=== PATIENT | female | born 1965 | race Caucasian/White ===

== ENCOUNTER 2018-09-29 11:05 | Day surgery (SDC) | payer BC ==
[~2018-09-29] VITALS: Ht 165.1 cm; Wt 92.2 kg
[~2018-09-29 11:05] MED LIST: COQ1050 MG PO; CYCL10 PO; DIVIGEL1 EAC1 TOP; Diclofenac Pota50 MG PO; FISH OIL + D31 EACH PO; HYDACE5; HYDACE5 PO; HYDR1TAB94 PO; Hair, Skin & N1 EACH PO; IBUP600 PO; Naprosyn500 MG PO; OXYACE5T PO; PRED20 PO; PROG100 PO; PROGESTERONE100 MG PO; PROM25 PO; PSEU120ER; Pepcid40 MG PO; Percocet 5-3251 EACH PO; Phentermine HCl30 MG PO; RXNEOPOLHC AS; SERT50; SULTRIDS PO; TRIMO; ZOLP10; [UNRECOGNIZED DRUG - OTHER] PO
--- NOTE | 2018-09-29 11:56 | NUR ---
09/29/18 1156 Aleena Sykes FIRST IV ATTEMPT LEFT HAND UNSUCCESSFUL
--- NOTE | 2018-09-29 15:01 | NUR ---
09/29/18 1501 Doc Nguyen PATIENT INTO SDU, RESTING IN RECLINER, REPORTS 9/10 PAIN, PER MD ORDERS GAVE IV PAIN MEDICATION, WILL CONTINUE TO MONITOR. PATIENT VSS, TOLERATING PO FLUIDS AND CRACKERS WELL. SISTER AND AT CHAIRSIDE
== END 2018-09-29 16:23 | disposition home or self-care (01) ==
LOC: ORSCSDS 11:05
PROVIDERS: Orthopaedic Surgery
PROC: 0SQD4ZZ Repair Left Knee Joint, Percutaneous Endoscopic Approach (ICD-10-PCS; principal; 2018-09-29 13:00)
DX: S83.241A Other tear of medial meniscus, current injury, right knee, initial encounter (principal); M94.262 Chondromalacia, left knee; E66.9 Obesity, unspecified
CPT/HCPCS: C1713; J0171; J0690; J1100; J1885; J2250; J2405; J3010; J7120

== ENCOUNTER → 2019-02-19 | Outpatient (CLI) | payer BC ==
[2019-02-21 15:06] LABS: HPV 16 Negative (Negative); HPV 18 Negative (Negative); HPV OTHER HR TYPES Negative (Negative)
== END | disposition home or self-care (01) ==
LOC: LAB SHORT 17:24 → LAB 17:24
PROVIDERS: Nurse Practitioner Women's Health
DX: Z12.4 Encounter for screening for malignant neoplasm of cervix (principal)
CPT/HCPCS: 87624; G0123

== ENCOUNTER 2020-08-09 12:02 | Emergency (ER) | payer BC ==
[~2020-08-09] VITALS: Ht 165.1 cm; Wt 81.7 kg
[2020-08-09] MEDS ORDERED: IBUP800 PO (15:18)
[2020-08-09] MEDS ORDERED: ACETAMINOPHEN500 MG PO (15:18)
== END 2020-08-09 15:33 | disposition home or self-care (01) ==
LOC: ER 12:02
DX: M17.11 Unilateral primary osteoarthritis, right knee (principal); M71.21 Synovial cyst of popliteal space [Baker], right knee; Z87.891 Personal history of nicotine dependence
CPT/HCPCS: 73564; 93971; 99284-25; A9270

== ENCOUNTER 2021-09-04 13:56 | Day surgery (SDC) | payer BC ==
[~2021-09-04] VITALS: Ht 165.1 cm; Wt 88.3 kg
[~2021-09-04 13:56] MED LIST changes: +ACETAMINOPHEN500 MG PO; +IBUP800 PO
--- NOTE | 2021-09-04 16:08 | NUR ---
09/04/21 1608 Dayanara Deng BUPIVACAINE 0.5% 30MLS MIXED WITH EPI 0.15 ML PER ORDER TO CONSTITUTE BUPIVACAINE 0.5% 1:200,000 FOR [facility]JE[facility] AT [facility] BY DR HAY. 30 MLS OF LOCAL INJECTED AT [facility].
--- NOTE | 2021-09-04 18:40 | NUR ---
09/04/21 1840 NEMO MONTEZ LATE ENTRY DOCUMENTATION ON VITAL STRIP SHOWS AT 1702 FENTANYL 100MCG GIVEN BUT GIVEN AT DIVIDED DOSES AT 1703 50 MCG AND [address] CHAND AT BEDSIDE ORDERS FOR PT PAIN 06/07.
== END 2021-09-04 19:01 | disposition home or self-care (01) ==
LOC: ORSCSDS 13:56
PROVIDERS: Podiatrist Foot & Ankle Surgery
PROC: 0QSK04Z Reposition Left Fibula with Internal Fixation Device, Open Approach (ICD-10-PCS; principal; 2021-09-04 15:00)
PROC: 0SGL04Z Fusion of Left Tarsometatarsal Joint with Internal Fixation Device, Open Approach (ICD-10-PCS; principal; 2021-09-04 15:00)
PROC: 0QSP04Z Reposition Left Metatarsal with Internal Fixation Device, Open Approach (ICD-10-PCS; principal; 2021-09-04 15:00)
DX: S93.325A Dislocation of tarsometatarsal joint of left foot, initial encounter (principal); S82.62XA Displaced fracture of lateral malleolus of left fibula, initial encounter for closed fracture; Z87.891 Personal history of nicotine dependence; Z79.899 Other long term (current) drug therapy
CPT/HCPCS: A9270; C1713; J0171; J0690; J1100; J1170; J2250; J2405; J2704; J3010; J7120